=== PATIENT | male | born 1980 | race Caucasian/White ===

== ENCOUNTER 2023-04-09 15:20 | Emergency (ER) | payer BC ==
[~2023-04-09] VITALS: Ht 188 cm; Wt 90.7 kg
[2023-04-09 15:20] VITALS: BP_SYST 119; PULSE 81; RESP 18; TEMP 98.3; O2SAT 97
[2023-04-09] MEDS ORDERED: AUG875 PO (15:41)
[2023-04-09 15:43] VITALS: BP_SYST 119; PULSE 81; RESP 18; TEMP 98.3; O2SAT 97
== END 2023-04-09 15:43 | disposition home or self-care (01) ==
LOC: SED 15:20
DX: J02.9 Acute pharyngitis, unspecified (principal); Z79.899 Other long term (current) drug therapy
CPT/HCPCS: 99283